=== PATIENT | female | born 1950 | race Caucasian/White ===

== ENCOUNTER 2019-01-29 20:06 | Observation (INO) | payer MEDICARE ==
--- NOTE | 2019-01-29 21:12 | CT ---
CT CERVICAL SPINE WITHOUT CONTRAST 01/29/19 HISTORY: Patient was found down in a field. Patient is being evaluated for possible stroke. COMPARISON: None. FINDINGS: No craniocervical dissociation. Lateral masses of C1 and C2 articular appropriately. There are degene rative changes in the facets. Intact odontoid process. Sclerotic lucencies likely due to chronic stalin nge. No prevertebral soft tissue swelling. Vary degrees of foraminal stenosis and central canal stenosis d ue to degenerative change. Evaluation is limited by technique. Upper mediastinum and lung apices are unremarkable. Cervical spine vertebral body height is maintained. There is no facture. IMPRESSION: 1. Chronic changes of the odontoid process. 2. No fracture. POS: [facility]
--- NOTE | 2019-01-29 22:02 | PDOC.FPRHP ---
- History of Present Illness Chief Complaint: ams History of Present Illness: 68yo F presented via EMS after she was found out in a horse pasture by her neighbors. Pt has no memory of what happened prior to being picked up by EMS. Based on her neighbors it was thought she may have been out feeding the horses as it is the time of day that she usually does. Pt was unable to provide much hx but was called. reported that over time pt has had slow decline in short term memory and ability to perform duties of home such as paying bills though she has never been this bad and that she has never had an acute event of amnesia before. Additionally he reports she has had prior trauma to the head one year ago after which pt had short term memory loss though she eventually recovered. ED Course: no medications administered, various labs and imaging as listed in EMR - Allergies/Adverse Reactions Allergies Allergy/AdvReac Type Severity Reaction Status Date / Time Iodinated Contrast- Oral and Allergy Severe Anaphylaxis Verified 01/30/19 00:48 IV Dye adhesive Allergy Mild Rash Verified 01/30/19 00:48 - Home Medications Medication Instructions Recorded Confirmed Type Acetaminophen [Tylenol Regular 650 mg PO Q4H PRN tab 01/30/19 Rx Strength] Aspirin [Ecotrin Low Strength] 81 mg PO DAILY tab 01/30/19 Rx Atenolol 1 tab PO BID 01/30/19 01/30/19 History Levothyroxine Sodium 1 tab PO DAILY 01/30/19 01/30/19 History Lisinopril/Hydrochlorothiazide 1 tab PO DAILY 01/30/19 01/30/19 History [Lisinopril-Hctz 20-12.5 mg Tab] Omeprazole 1 cap PO DAILY 01/30/19 01/30/19 History - History PMHx: Hx of head trauma, HTN, hypothyroid 2/2 thryroidectomy for thyroid cancer , GERD PSHx: thyroidectomy, hysterectomy FHx: negative Social: denies etoh/tobacco/drugs - Review of Systems General: denies: fever/chills, fatigue Eyes: denies: eye pain, vision changes ENT: denies: nasal congestion, rhinorrhea Respiratory: denies: congestion, shortness of breath Cardiovascular: denies: chest pain, palpitation Gastrointestinal: denies: nausea, vomiting Genitourinary: denies: incontinence, dysuria Skin: denies: rashes, lesions Musculoskeletal: denies: pain, tenderness Neurological: denies: syncope, seizure Psychological: denies: anxiety, depression - Vital signs BP: [156/93] HR: [66] RR: [17] Tmax: [98.2] Pox: [99]% on [ra] Wt: [82kg] - Physical Exam Constitutional: NAD, well developed HEENT: normocephalic and atraumatic, EOMI, conjunctiva clear, grossly normal vision, grossly normal hearing, MMM Neck: supple, trachea midline, other (scar) Chest: no-tender to palpation Heart: RRR, normal S1/S2 Lungs: CTAB, no respiratory distress Abdomen: soft, non-tender Musculoskeletal: normal structure, normal tone Neurological: no focal deficit, CN II-XII intact, normal sensation, DTRs 2+, other (facial droop at mouth 2/2 scar tissue on neck. On smiling droop dissapears) Skin: no rash/lesions, good turgor Heme/Lymphatic: no unusual bruising or bleeding, no purpura Psychiatric: normal mood and affect FMR H&P: A/P - Problem List (1) Altered mental state Current Visit: Yes Status: Acute Code(s): R41.82 - ALTERED MENTAL STATUS, UNSPECIFIED (2) Hypothyroid Current Visit: Yes Status: Acute Code(s): E03.9 - HYPOTHYROIDISM, UNSPECIFIED (3) HTN (hypertension) Current Visit: Yes Status: Acute Code(s): I10 - ESSENTIAL (PRIMARY) HYPERTENSION (4) GERD (gastroesophageal reflux disease) Current Visit: Yes Status: Acute Code(s): K21.9 - GASTRO-ESOPHAGEAL REFLUX DISEASE WITHOUT ESOPHAGITIS - Plan AMS A- likely 2/2 dementia vs. TIA/stroke. CT brain, CTA, and CT neck all negative so far. Neuro exam was not impressive other than mental status. SLUMS score of 16 (reference 25 for her lvl of education) points to dementia. Considering the seemingly acute nature of onset of increased disorientation and amnesia amnesia must also be considered. No signs of trauma on exam or through imaging at this time. P- MRI in AM - ASA - consider further conversations with to establish baseline - allow for permissive HTN at this time Hypothyroid A- 2/2 thyroidectomy, TSH in hospital 0.08 P- recommend f/u outpt for adjustment of levothyroxin dose HTN -hold home meds for permissive htn GERD -home meds DISPO: stroke, obs DIET: regular CODE: Pt only desires intubation. Discussed extensively with pt who verbalized excellent understanding of various options of resuscitation. FMR H&P: Upper Level - Pertinent history 68 yo WF PMH HTN, hypothyroid, and remote hx of thyroid cancer. Presents after being found down for unknown amount of time. Last seen normal at 1400. Family believe she was going to the pasture to feed her livestock. Patient was found down and covered in dirt with her sock and bra missing. Do not suspect foul play or assault. Patient able to recall remote medical history but was unable to tell time, day of week, date, or year. Also unable to recall events of the past 2-3 days and is forgetful during examination. I spoke to the who agreed she was last seen normal at 1400. Patient called neighbor at 1600 and was confused where she was. States she was confused about what she was doing. Could not remember if she had fallen down but was covered in dirt on the right side. States her eyes were dilated. States this has happened before when they were living in [place] and occurred when a horse pulled her to the ground and caused the patient to strike her head on the ground and lose consciousness. Episode only lasted 2-3 hours. Has been very forgetful since the move and it has worsened over the past 6 months. Has not got lost driving. Manages family's finances and has forgotten to pay bills more frequent over the past 6-8 months. Has history of bilateral total knee replacements. ER: Labs, CT-brain, CT neck, Narcan - Pertinent findings Vitals: WNL GEN: NAD, dirt present on skin. CV: RRR, no murmur Pulm: CTA-B Neuro: CN 2-12 intact, reflexes 2/4, normal strength and sensation. SLUMS score 16 with most points lost for recalling details from short term memory. CT-brain: no acute processes CT-cervical spine: degenerative changes. - Plan Date/Time: 01/29/192201 I, Watson Pappas MD, have evaluated this patient and agree with findings/plan as outlined by quality assurance intern resident. Pertinent changes/additions are listed here. 1. AMS: evaluation negative. Will plan for MRI in the morning to complete evaluation. Based on the SLUMS score and report from , the patient likely has early dementia. Pending MRI, will consider neurology consultation. 2. Fall: no signs of injury 3. Chronic conditions per Nuclear Waste Management Engineer Note 4. Diet: NPO until bedside swallow passed then HH diet. 5. CODE: INTUBATION ONLY Dispo: obs, stroke, <[address] Bruno. Addendum - Attending - Attending Attestation Date/Time: 01/30/192021 I personally evaluated the patient and discussed the management with Dr. Jacobson last evening. I agree with the History, Examination, Assessment and Plan documented above with any addition or exceptions noted below.
[2019-01-30] MEDS ORDERED: Ondansetron ODT 4 MG TAB SL PRN (00:21)
[2019-01-30] MEDS ORDERED: Ondansetron PF 4 MG/2 ML Vial IVP PRN (00:21)
[2019-01-30] MEDS ORDERED: Sodium Chloride 0.9% 1,000 ML IV SCH (00:21)
[2019-01-30] MEDS ORDERED: diphenhydrAMINE 25 MG CAP PO PRN (00:30)
[2019-01-30 00:41] VITALS: BMI 32.6
[2019-01-30] MEDS: Levothyroxine Sodium 25 MCG TAB PO SCH (06:34)
[2019-01-30] MEDS: Levothyroxine Sodium 112 MCG TAB PO SCH (06:35)
--- NOTE | 2019-01-30 06:41 | PDOC.FM ---
- Subjective Subjective: Patient reports feeling much better this AM. Denies any headache, vision changes , focal weakness, dysarthria, or numbness/tingling. Still has no memory of events leading up to admission. A&O x 2 on exam. - Objective MAR Reviewed: Yes Vital Signs & Weight: Vital Signs (12 hours) Temp Pulse Resp BP Pulse Ox 01/30/19 04:00 98.3 F 78 18 110/66 95 01/29/19 23:31 98.3 F 67 18 161/97 H 99 Weight Weight 78.381 kg I&O: 01/28/19 01/29/19 01/30/19 06:59 06:59 06:59 Intake Total 236 Balance 236 Phys Exam - Physical Examination Constitutional: NAD HEENT: moist MMs, oral pharynx no lesions Neck: supple, full ROM Respiratory: no wheezing, no rales, no rhonchi, clear to auscultation bilateral Cardiovascular: RRR, no significant murmur Gastrointestinal: positive bowel sounds Neurological: non-focal, normal sensation, 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 TIA/stroke. CT brain, CTA, and CT neck all negative so far. Neuro exam was not impressive other than mental status. SLUMS score of 16 (reference 25 for her lvl of education). Considering the seemingly acute nature of onset of increased disorientation and amnesia, simple amnesia must also be considered. No signs of trauma on exam or through imaging at this time. Will consider referral for further workup as an outpatient regarding dementia vs. amnesia including additional organic causes such as vitamin deficiencies or chronic infections such as HIV & syphilis. - MRI pending for today to r/o any acute event or other IC process that could explain her memory loss. - Will continue QD ASA & consider initiating moderate intensity statin therapy as well based on ASCVD 10-year score of 12.7% currently but increases to 23% should develop diabetes from her current pre-DM (A1c 6.1). - Will plan to discuss with further to establish memory baseline. - Will continue allow for permissive HTN at this time through 24hrs from onset of symptoms pending MRI. Pre-DM - Will educate on diet & exercise and ensure close f/u w/ PCP regarding this. Hypothyroid - 2/2 thyroidectomy, TSH low at 0.08 but T4 WNLs. - recommend f/u outpt for adjustment of levothyroxin dose HTN - Will hold home meds for permissive htn until time of onset of symptoms. GERD -home meds DISPO: stroke, obs DIET: HH IVFs: saline lock DVT PPx: Lovenox CODE: Pt only desires intubation. Discussed extensively with pt who verbalized excellent understanding of various options of resuscitation. Addendum - Attending - Attending Attestation Date/Time: 01/30/19 854 I personally evaluated the patient and discussed the management with Dr. aRzo. I agree with the History, Examination, Assessment and Plan documented above with any addition or exceptions noted below. Pt is still confused about what brought her to hospital and doesn't recall details of being out in a field. MRI is scheduled today. Will add echo as well.
[2019-01-30] MEDS ORDERED: Benzonatate 100 MG CAP PO PRN (07:55)
[2019-01-30 08:08] LABS: Hemoglobin A1c 6.1 % (4.0-6.0)
[2019-01-30 08:24] LABS: Cardiac Risk 5.1 (Less than 4.5)
[2019-01-30] MEDS: Aspirin 81 mg Enteric Coated Tablet PO SCH (08:46)
[2019-01-30] MEDS: Acetaminophen 325 MG TAB PO PRN ×3 (08:46→20:51)
[2019-01-30] MEDS: Enoxaparin Sodium 40 MG/0.4 ML SYRINGE SC SCH (08:47)
[2019-01-30] MEDS ORDERED: Lisinopril/Hydrochlorothiazide 20 mg/12.5 mg Tablet PO SCH ×2 (09:00→11:15)
[2019-01-30] MEDS ORDERED: Non-Formulary Item 1 EACH (Levothyroxine Sodium [Levothyroxine Sodium] 1 TAB) PO SCH (09:00)
[2019-01-30] MEDS ORDERED: Non-Formulary Item 1 EACH (Omeprazole [Omeprazole] 1 CAP) PO SCH (09:00)
[2019-01-30] MEDS ORDERED: Atenolol 25 MG TAB PO SCH (09:00)
--- NOTE | 2019-01-30 11:00 | MRI ---
MRI BRAIN WITHOUT CONTRAST: Date: 01/30/19 HISTORY: Altered mental status and amnesia, dementia. FINDINGS: Correlation is made with previous day's CT scan. No restricted diffusion is seen. No evidence of infarct, hemorrhage, midline shift, or abnormal extra -axial fluid collections are noted. There are changes of mild chronic small vessel ischemic disease i n the periventricular white matter. The visualized paranasal sinuses and mastoid air cells are well a erated. IMPRESSION: No evidence of acute intracranial process. POS: [facility]
[2019-01-30] MEDS: Atenolol 25 MG TAB PO SCH (20:42)
[2019-01-30] MEDS ORDERED: Atorvastatin Calcium 40 MG TAB PO SCH (21:00)
[2019-01-31] MEDS: Levothyroxine Sodium 112 MCG TAB PO SCH (06:18)
[2019-01-31] MEDS: Levothyroxine Sodium 25 MCG TAB PO SCH (06:18)
--- NOTE | 2019-01-31 06:27 | PDOC.FM ---
- Subjective Subjective: Patient states she feels well this AM. A&O x 3 this AM but saw date written on board. Did now the year though and remembered her 's birthday was [birth year]. Reports that her urine appears darker in color and has a slight odor. Denies any dysuria, frequency, hematuria or suprapubic tenderness. - Objective MAR Reviewed: Yes Vital Signs & Weight: Vital Signs (12 hours) Temp Pulse Resp BP Pulse Ox 01/31/19 04:00 97.9 F 71 18 114/76 95 01/31/19 00:00 97.8 F 72 19 142/79 H 97 01/30/19 20:00 98.0 F 81 19 137/86 95 Weight Weight 78.381 kg I&O: 01/29/19 01/30/19 01/31/19 06:59 06:59 06:59 Intake Total 236 50 Balance 236 50 Phys Exam - Physical Examination Constitutional: NAD HEENT: moist MMs Neck: supple, full ROM Respiratory: no wheezing, no rales, no rhonchi, clear to auscultation bilateral Cardiovascular: RRR, no significant murmur Gastrointestinal: soft, non-tender Musculoskeletal: no edema, pulses present Neurological: non-focal, normal sensation, moves all 4 limbs Psychiatric: normal affect, A&O x 3 Skin: no rash, normal turgor Dx/Plan (1) Altered mental state Code(s): R41.82 - ALTERED MENTAL STATUS, UNSPECIFIED Status: Acute (2) GERD (gastroesophageal reflux disease) Code(s): K21.9 - GASTRO-ESOPHAGEAL REFLUX DISEASE WITHOUT ESOPHAGITIS Status: Acute (3) HTN (hypertension) Code(s): I10 - ESSENTIAL (PRIMARY) HYPERTENSION Status: Acute (4) Hypothyroid Code(s): E03.9 - HYPOTHYROIDISM, UNSPECIFIED Status: Acute (5) HLD (hyperlipidemia) Code(s): E78.5 - HYPERLIPIDEMIA, UNSPECIFIED Status: Acute (6) Pre-diabetes Code(s): R73.03 - PREDIABETES Status: Acute (7) Dementia Code(s): F03.90 - UNSPECIFIED DEMENTIA WITHOUT BEHAVIORAL DISTURBANCE Status: Acute - Plan Plan: AMS - likely 2/2 dementia as TIA/stroke workup has been negative inlcuding a CT & MRI brain, CTA of head & neck, and CT neck. Neuro exam still not impressive other than mental status; however, patient only disoriented to time, knows place. Will likely need further workup as an outpatient regarding likely dementia including additional organic causes such as vitamin deficiencies or chronic infections such as HIV & syphilis. - Will continue QD ASA & would initiate a stain; however, patient reports she does not tolerate statins 2/2 increased muscle weakness & fatigue. Will make mention of this in her discharge paperwork. Pre-DM - A1c of 6.1. Will educate on diet & exercise and ensure close f/u w/ PCP regarding this. Hypothyroidism - 2/2 thyroidectomy, TSH low at 0.08 but T4 WNLs. - recommend f/u outpt for adjustment of levothyroxin dose HTN - Will continue home meds. GERD -home meds HLD - Patient reports not tolerating a statin but given risk factors should be on one. Will recommend considering another option for HLD therapy in her d/c paperwork. Depression: - Will resume home citalopram today & upon d/c. DISPO: Anticipate d/c home today after an ECHO. DIET: HH IVFs: saline lock DVT PPx: Lovenox CODE: Pt only desires intubation. Discussed extensively with pt who verbalized excellent understanding of various options of resuscitation. Addendum - Attending - Attending Attestation Date/Time: 01/31/19 1018 I personally evaluated the patient and discussed the management with Dr. Razo. I agree with the History, Examination, Assessment and Plan documented above with any addition or exceptions noted below. The patient is feeling better this morning and confusion is improving. The patient is waiting on an echo to be taken then will be discharging home.
[2019-01-31] MEDS: Aspirin 81 mg Enteric Coated Tablet PO SCH (08:29)
[2019-01-31] MEDS: Atenolol 25 MG TAB PO SCH (08:29)
[2019-01-31] MEDS: Enoxaparin Sodium 40 MG/0.4 ML SYRINGE SC SCH (08:29)
[2019-01-31] MEDS: Acetaminophen 325 MG TAB PO PRN (08:30)
[2019-01-31] MEDS ORDERED: Citalopram 20 MG TAB PO SCH (09:00)
[2019-01-31] MEDS ORDERED: Lisinopril/Hydrochlorothiazide 20 mg/12.5 mg Tablet PO SCH ×2 (09:00)
[2019-01-31 11:21] VITALS: BP 140/86; TEMP 97.6
--- NOTE | 2019-02-03 09:26 | DIS ---
DATE OF ADMISSION: 01/29/2019 DATE OF DISCHARGE: 01/31/2019 RESIDENT: Yuliana Razo MD ADMITTING ATTENDING: Geronimo Bruno MD DISCHARGE ATTENDING: Magaly Latham MD CONSULTS: None. PROCEDURES: 1. Brain CT on 01/29/2019, which showed no evidence of hemorrhage, acute infarction, mass effect, or midline shift. No acute intracranial abnormality demonstrated. 2. Head and neck CTA with brain perfusion on 01/29/2019, which showed no evidence of significant stenosis of the cervical carotid arteries based upon NASCET criteria. Unremarkable CT angiogram of the [place]. No significant stenosis or vascular occlusion. 3. Cervical spine CT on 01/29/2019, which noted chronic changes of the odontoid process with no acute fracture. 4. Brain MRI on 01/30/2019, which showed no evidence of acute intracranial process. 5. Echocardiogram on 01/31/2019, which showed left ventricular ejection fraction of 55% to 60% with E/A flow reversal noted suggestive of diastolic dysfunction. Mild mitral and tricuspid regurgitation present with mitral annular calcification as well. PRIMARY DIAGNOSES: 1. Altered mental status, secondary to chronic dementia. 2. Prediabetes mellitus. SECONDARY DIAGNOSES: 1. Hypothyroidism. 2. Hypertension. 3. Gastroesophageal reflux disease. 4. Hyperlipidemia. 5. Depression. DISCHARGE MEDICATIONS: 1. Omeprazole 20 mg p.o. daily. 2. Atenolol 25 mg p.o. b.i.d. 3. Synthroid 137 mcg p.o. daily. 4. Lisinopril/HCTZ 20/12.5 mg tablets, 1 tab p.o. daily. 5. Acetaminophen 650 mg p.o. every 4 hours p.r.n. 6. Aspirin 81 mg p.o. daily. 7. Citalopram 20 mg p.o. b.i.d. DISCONTINUED MEDICATIONS: None. HOSPITAL COURSE: The patient is a 68-year-old female with a past medical history significant for progressively worsening dementia following trauma to the head by a horse approximately 1 year ago, hypertension and hyperlipidemia, who presented to the emergency department via EMS after being found wandering in a horse pressure by her neighbors. On presentation, the patient had no memory of what happened prior to being picked up by EMS. However, discussion with her has been revealed that over time, the patient has had a slow decline in her short-term memory and ability to perform regular tasks such as paying bills at home. On presentation to the emergency department, the patient's vitals were noted to be within normal limits with the exception of a slightly elevated blood pressure of 164/86. Routine blood work was obtained including a CBC, CMP, troponin and lactic acid, all of which were negative. Urinalysis and UDS were also obtained and were within normal limits. Extensive imaging including a brain CT, head and neck CTA, and cervical spine CT were all obtained, all of which were also within normal limits. However, due to the acutely worsened amnesia that the patient presented with, she was admitted for close observation overnight for completing a workup for possible CVA versus TIA, which could explain her acute memory deficits. The following day, a brain MRI was obtained which was within normal limits and showed no acute intracranial abnormality suggestive of an ischemic event. Also on day #2 of hospitalization, hemoglobin A1c and fasting lipid panel were obtained, which were significant for prediabetes mellitus with an A1c of 6.1 and hypercholesterolemia with a total cholesterol level of 211, LDL of 134, and HDL 41. Of note, when the patient was asked about statin therapy, she reported an adverse reaction to statins in the past. Therefore, no statin therapy was initiated during her hospital stay, but the patient was encouraged to follow up with her primary care provider regarding hypercholesterolemia treatment. Regarding her prediabetes mellitus, the patient was started on a consistent carb diet during her hospital stay and was encouraged to follow up with her primary care provider and was educated on lifestyle changes in order to prevent progression to diabetes mellitus type 2. The patient was kept for one additional night in order to obtain an echocardiogram to complete her CVA workup. Her echo showed an EF of 55% to 60% with E/A flow reversal suggestive of diastolic dysfunction. Thus, by day #3 of hospitalization, the patient's mental status was noted to have significantly improved and all of her memory testing was negative and all imaging was negative for any acute ischemic event. She was therefore cleared for discharge home with close followup with her primary care provider, Dr. Poli Allison. DISPOSITION: Stable. DISCHARGE INSTRUCTIONS: 1. Location: Home. 2. Diet: Consistent carb, heart healthy, low-sodium diet. 3. Activity: Activity as tolerated. No restrictions. 4. Followup: The patient was instructed to follow up with her primary care provider, Dr. Poli Allison at [facility] within 1 week of discharge. Job ID: [id number]
== END 2019-01-31 13:52 | disposition home or self-care (01) ==
LOC: ERS 20:06 → 2SE 21:39
PROVIDERS: ADMIT Family Medicine; ATTEND Family Medicine
DX: R41.82 Altered mental status, unspecified (principal); I10 Essential (primary) hypertension; E89.0 Postprocedural hypothyroidism; K21.9 Gastro-esophageal reflux disease without esophagitis; Z79.82 Long term (current) use of aspirin; Z79.899 Other long term (current) drug therapy; Z91.041 Radiographic dye allergy status; Z91.048 Other nonmedicinal substance allergy status
CPT/HCPCS: 70551; 72125; 80061; 82962 ×2; 83036; 84439; 93306; 96372 ×2; 99285; G0378 ×2; 36415; 36416; J1650; Q0163

== ENCOUNTER 2022-03-18 00:51 | Inpatient (IN) | payer MEDICARE ==
[2022-03-18 02:07] VITALS: BMI 33.8
[2022-03-18] MEDS ORDERED: Ondansetron PF 4 MG/2 ML Vial IVP PRN (02:48)
[2022-03-18] MEDS ORDERED: hydrALAZINE 20 MG/ML VIAL SLOW IVP PRN (02:52)
[2022-03-18] MEDS: Sodium Chloride 0.9% 1,000 ML IV SCH ×3 (03:49→20:30)
[2022-03-18] MEDS ORDERED: Ketorolac Tromethamine 30 MG/ML VIAL IVP SCH (05:15)
[2022-03-18 06:10] LABS: #Eosinphils 0.2 thou/uL (0.0-0.7); #Lymphocytes 1.9 thou/uL (1.20-3.40); #Monocytes 0.7 thou/uL (0.11-0.59); #Neutrophils 4.5 thou/uL (1.40-6.50); %Basophils 0.5 % (0.0-1.0); %Eosinophils 3.1 % (0.0-10.0); %Lymphocytes 25.8 % (21.0-51.0); %Monocytes 9.7 % (0.0-10.0); %Neutrophils 60.9 % (42.0-75.0); Hemoglobin 11.9 g/dL (12.0-16.0); Mean Corpuscular HGB CONC 33.6 g/dL (32.0-36.0); Mean Corpuscular Hemoglobin 31.5 pg (27.0-31.0); Mean Corpuscular Volume 93.7 fL (78.0-98.0); Mean Platelet Volume 8.5 fL (7.4-10.4); Platelet Count 202 thou/uL (130-400); RBC Distribution Width 11.4 % (11.5-14.5); Red Blood Cell (RBC) Count 3.79 mill/uL (4.20-5.40); White Blood Cell (WBC) Count 7.4 thou/uL (4.8-10.8)
[2022-03-18 06:27] LABS: Anion Gap 10 mmol/L (10-20); BUN (Urea Nitrogen) 20 mg/dL (9.8-20.1); Calc. Creatinine Clearance 96 mL/min (70-130); Calcium 8.3 mg/dL (7.8-10.44); Carbon Dioxide 25 mmol/L (23-31); Chloride 107 mmol/L (98-107); Glucose 115 mg/dL (83-110); Potassium 3.3 mmol/L (3.5-5.1); Sodium 139 mmol/L (136-145)
[2022-03-18] MEDS ORDERED: Pantoprazole 40 MG VIAL IVP SCH (09:00)
[2022-03-18] MEDS ORDERED: Enoxaparin Sodium 40 MG/0.4 ML SYRINGE SC SCH (09:00)
[2022-03-18] MEDS: Potassium Chloride 20 MEQ in Premix Bag 1 BAG IVPB SCH ×2 (09:59→11:22)
[2022-03-18] MEDS ORDERED: Lidocaine 1% PF 5 ML VIAL ONE (14:02)
[2022-03-18] MEDS ORDERED: PROPOFOL 200 MG/20 ML VIAL ONE (14:05)
[2022-03-18] MEDS ORDERED: Ondansetron HCl/PF 4 MG/2 ML Vial IVP PRN (14:43)
[2022-03-18] MEDS ORDERED: Promethazine HCl 25 MG/ML VIAL IVPB PRN (14:43)
[2022-03-18] MEDS ORDERED: Promethazine HCl 25 MG/ML VIAL IM PRN (14:43)
[2022-03-18] MEDS: Pantoprazole 40 MG VIAL IVP SCH (20:23)
[2022-03-18] MEDS ORDERED: Acetaminophen 325 MG TAB PO PRN (20:47)
[2022-03-18] MEDS ORDERED: Acetaminophen 650 MG/20.3 ML UDCUP PO PRN (20:55)
[2022-03-19 06:16] LABS: #Eosinphils 0.3 thou/uL (0.0-0.7); #Lymphocytes 1.5 thou/uL (1.20-3.40); #Monocytes 0.5 thou/uL (0.11-0.59); #Neutrophils 3.1 thou/uL (1.40-6.50); %Basophils 0.3 % (0.0-1.0); %Lymphocytes 27.8 % (21.0-51.0); %Monocytes 9.5 % (0.0-10.0); %Neutrophils 57.4 % (42.0-75.0); Hemoglobin 11.8 g/dL (12.0-16.0); Mean Corpuscular HGB CONC 34.8 g/dL (32.0-36.0); Mean Corpuscular Hemoglobin 32.7 pg (27.0-31.0); Mean Corpuscular Volume 94.1 fL (78.0-98.0); Mean Platelet Volume 7.9 fL (7.4-10.4); Platelet Count 172 thou/uL (130-400); RBC Distribution Width 11.2 % (11.5-14.5); Red Blood Cell (RBC) Count 3.59 mill/uL (4.20-5.40); White Blood Cell (WBC) Count 5.5 thou/uL (4.8-10.8)
[2022-03-19 06:42] LABS: Anion Gap 12 mmol/L (10-20); BUN (Urea Nitrogen) 14 mg/dL (9.8-20.1); Calc. Creatinine Clearance 107 mL/min (70-130); Calcium 8.4 mg/dL (7.8-10.44); Carbon Dioxide 22 mmol/L (23-31); Chloride 111 mmol/L (98-107); Glucose 95 mg/dL (83-110); Potassium 3.8 mmol/L (3.5-5.1); Sodium 141 mmol/L (136-145)
[2022-03-19] MEDS: Sodium Chloride 0.9% 1,000 ML IV SCH ×2 (09:39→20:29)
[2022-03-19] MEDS: Enoxaparin Sodium 40 MG/0.4 ML SYRINGE SC SCH (09:43)
[2022-03-19] MEDS: Pantoprazole 40 MG VIAL IVP SCH ×2 (09:43→21:01)
[2022-03-19] MEDS: Atenolol 25 MG TAB PO SCH (21:01)
[2022-03-19] MEDS: Citalopram 20 MG TAB PO SCH (21:02)
[2022-03-20] MEDS ORDERED: Fluticasone Propionate Nasal Spray 16 gm Bottle NASAL PRN (04:16)
[2022-03-20] MEDS ORDERED: Levothyroxine Sodium 25 MCG TAB PO SCH (06:00)
[2022-03-20] MEDS ORDERED: Levothyroxine Sodium 112 MCG TAB PO SCH (06:00)
[2022-03-20 06:14] LABS: Anion Gap 13 mmol/L (10-20); BUN (Urea Nitrogen) 7 mg/dL (9.8-20.1); Calc. Creatinine Clearance 103 mL/min (70-130); Calcium 8.7 mg/dL (7.8-10.44); Carbon Dioxide 21 mmol/L (23-31); Chloride 108 mmol/L (98-107); Glucose 125 mg/dL (83-110); Potassium 3.4 mmol/L (3.5-5.1); Sodium 139 mmol/L (136-145)
[2022-03-20] MEDS ORDERED: Aspirin 81 mg Enteric Coated Tablet PO SCH (09:00)
[2022-03-20] MEDS ORDERED: Bupropion 150 MG XL TAB PO SCH (09:00)
[2022-03-20] MEDS ORDERED: Lisinopril/Hydrochlorothiazide 20 mg/12.5 mg Tablet PO SCH (09:00)
[2022-03-20] MEDS: Atenolol 25 MG TAB PO SCH (09:34)
[2022-03-20] MEDS: Citalopram 20 MG TAB PO SCH (09:35)
[2022-03-20] MEDS: Enoxaparin Sodium 40 MG/0.4 ML SYRINGE SC SCH (09:35)
[2022-03-20] MEDS: Pantoprazole 40 MG VIAL IVP SCH (09:35)
[2022-03-20] MEDS ORDERED: Potassium Chloride 20 MEQ TAB PO SCH (10:00)
[2022-03-20] MEDS: Sodium Chloride 0.9% 1,000 ML IV SCH (11:33)
[2022-03-20 15:31] VITALS: BP 140/79; TEMP 98.1
== END 2022-03-20 16:30 | disposition home or self-care (01) | DRG 382 ==
LOC: SURG B 01:21 → OBSVTOIN 03-20 13:53
PROVIDERS: ADMIT Internal Medicine; ATTEND Hospitalist
PROC: 0DB68ZX Excision of Stomach, Via Natural or Artificial Opening Endoscopic, Diagnostic (ICD-10-PCS; principal; 2022-03-18)
DX: K22.10 Ulcer of esophagus without bleeding (principal); R13.10 Dysphagia, unspecified; F03.90 Unspecified dementia, unspecified severity, without behavioral disturbance, psychotic disturbance, mood disturbance, and anxiety; E78.5 Hyperlipidemia, unspecified; I10 Essential (primary) hypertension; K31.7 Polyp of stomach and duodenum; E89.0 Postprocedural hypothyroidism; K21.00 Gastro-esophageal reflux disease with esophagitis, without bleeding; Z85.850 Personal history of malignant neoplasm of thyroid; Z79.82 Long term (current) use of aspirin; Z79.890 Hormone replacement therapy; Z79.899 Other long term (current) drug therapy; Z91.041 Radiographic dye allergy status; Z91.048 Other nonmedicinal substance allergy status; Z98.890 Other specified postprocedural states; Z90.710 Acquired absence of both cervix and uterus; Z90.49 Acquired absence of other specified parts of digestive tract; Z82.49 Family history of ischemic heart disease and other diseases of the circulatory system; Z82.3 Family history of stroke
CPT/HCPCS: 36415; 80048; 85025; 88305; 88312; 88342; 96372; 96374; 96376; C9113; G0378; J0360; J1650; J1885; J2704; J3480; J7050

== ENCOUNTER 2023-10-20 15:46 | Emergency (ER) | payer OTHER, MEDICARE ==
[2023-10-20 16:46] LABS: #Eosinphils 0.1 thou/uL (0.0-0.7); #Monocytes 0.7 thou/uL (0.11-0.59); %Basophils 0.2 % (0.0-1.0); %Eosinophils 1.7 % (0.0-10.0); %Lymphocytes 12.3 % (21.0-51.0); %Monocytes 9.9 % (0.0-10.0); %Neutrophils 75.6 % (42.0-75.0); Hematocrit 33.4 % (36.0-47.0); Hemoglobin 11.5 g/dL (12.0-16.0); Mean Corpuscular HGB CONC 34.4 g/dL (32.0-36.0); Mean Corpuscular Hemoglobin 30.3 pg (27.0-31.0); Mean Corpuscular Volume 87.9 fl (78.0-98.0); Mean Platelet Volume 10.1 fL (7.4-10.4); Platelet Count 207 10x3/uL (130-400); RBC Distribution Width 11.4 % (11.5-14.5); White Blood Cell (WBC) Count 6.7 10x3/uL (4.8-10.8)
[2023-10-20 17:07] LABS: Anion Gap 13 mmol/L (10-20); BUN (Urea Nitrogen) 18 mg/dL (9.8-20.1); Calc. Creatinine Clearance 0 mL/min (70-130); Calcium 8.2 mg/dL (7.8-10.44); Carbon Dioxide 24 mmol/L (23-31); Chloride 93 mmol/L (98-107); Estimated GFR 94; Glucose 125 mg/dL (83-110); Potassium 4.1 mmol/L (3.5-5.1); Sodium 126 mmol/L (136-145)
[2023-10-20 17:19] LABS: Troponin I Less than 0.010 ng/mL (< 0.028)
[2023-10-20] MEDS ORDERED: Morphine 4 MG/ML VIAL ONE (17:41)
== END 2023-10-20 19:12 | disposition short-term general hospital (02) ==
LOC: ERS 15:46
DX: S12.02XA Unstable burst fracture of first cervical vertebra, initial encounter for closed fracture (principal); S12.110A Anterior displaced Type II dens fracture, initial encounter for closed fracture; E87.1 Hypo-osmolality and hyponatremia; E11.9 Type 2 diabetes mellitus without complications; E07.9 Disorder of thyroid, unspecified; I10 Essential (primary) hypertension; Z79.899 Other long term (current) drug therapy; W01.0XXA Fall on same level from slipping, tripping and stumbling without subsequent striking against object, initial encounter
CPT/HCPCS: 36415; 70450; 72125; 72128; 80048; 84484; 85025; 93005; 96374; J2270

== ENCOUNTER 2024-12-16 00:42 | Inpatient (IN) | payer MEDICARE ==
[2024-12-16 03:36] VITALS: BMI 27.4
[2024-12-16] MEDS ORDERED: Calcium Carbonate 500 MG ChewTAB PO PRN (03:41)
[2024-12-16] MEDS ORDERED: Ondansetron ODT 4 MG TAB PO PRN (03:41)
[2024-12-16] MEDS ORDERED: Acetaminophen 650 MG Suppository PR PRN (03:41)
[2024-12-16] MEDS ORDERED: Ondansetron PF 4 MG/2 ML Vial IVP PRN (03:41)
[2024-12-16] MEDS: Acetaminophen 325 MG TAB PO PRN (04:39)
[2024-12-16 05:36] LABS: #Basophils 0.03 10x3/uL (0.0-0.2); %Basophils 0.6 % (0.0-1.0); %Eosinophils 3.6 % (0.0-10.0); %Lymphocytes 33.3 % (21.0-51.0); %Monocytes 10.8 % (0.0-10.0); %Neutrophils 51.5 % (42.0-75.0); Hematocrit 31.3 % (36.0-47.0); Hemoglobin 10.5 g/dL (12.0-16.0); Mean Corpuscular HGB CONC 33.5 g/dL (32.0-36.0); Mean Corpuscular Hemoglobin 29.6 pg (27.0-31.0); Mean Corpuscular Volume 88.2 fL (78.0-98.0); Platelet Count 203 10x3/uL (130-400); RBC Distribution Width 12.6 % (11.5-14.5); Red Blood Cell (RBC) Count 3.55 mill/uL (4.20-5.40)
[2024-12-16 05:52] LABS: Anion Gap 13 mmol/L (10-20); BUN (Urea Nitrogen) 16 mg/dL (9.8-20.1); Calc. Creatinine Clearance 90 mL/min (70-130); Calcium 8.2 mg/dL (7.8-10.44); Carbon Dioxide 22 mmol/L (23-31); Chloride 107 mmol/L (98-107); Estimated GFR 94; Glucose 113 mg/dL (83-110); Potassium 3.8 mmol/L (3.5-5.1); Sodium 138 mmol/L (136-145)
[2024-12-16] MEDS: Metoprolol Succinate XL 50 MG ER.TAB PO SCH (09:09)
[2024-12-16] MEDS: Famotidine 20 MG TAB PO SCH (09:10)
[2024-12-16] MEDS: Levothyroxine Sodium 25 MCG TAB PO SCH (09:11)
[2024-12-16] MEDS: Citalopram 20 MG TAB PO SCH (09:11)
[2024-12-16] MEDS: Levothyroxine Sodium 112 MCG TAB PO SCH (09:11)
[2024-12-16] MEDS: Oxybutynin ER 5 MG TAB PO SCH (09:12)
[2024-12-16] MEDS: Lisinopril 20 MG TAB PO SCH (09:13)
[2024-12-16] MEDS: Hydrochlorothiazide 25 MG TAB PO SCH (09:14)
[2024-12-16] MEDS: Famotidine/PF 20 mg/2ml Vial SLOW IVP SCH (09:14)
[2024-12-16] MEDS ORDERED: Magnevist 469MG/ML 20 ML VIAL ONE (10:39)
[2024-12-16] MEDS: Rosuvastatin 10 MG TAB PO SCH (19:39)
[2024-12-16] MEDS: cefTRIAXone\\ROCEPHIN 1 GM in Sodium Chloride 0.9% 100 ML IVPB SCH (21:48)
[2024-12-17 04:14] LABS: #Basophils 0.03 10x3/uL (0.0-0.2); %Basophils 0.7 % (0.0-1.0); %Eosinophils 4.5 % (0.0-10.0); %Lymphocytes 42.2 % (21.0-51.0); %Monocytes 11.2 % (0.0-10.0); %Neutrophils 41.2 % (42.0-75.0); Hematocrit 30.6 % (36.0-47.0); Mean Corpuscular HGB CONC 32.7 g/dL (32.0-36.0); Mean Corpuscular Hemoglobin 29.2 pg (27.0-31.0); Mean Corpuscular Volume 89.2 fL (78.0-98.0); Mean Platelet Volume 10.1 fL (7.4-10.4); Platelet Count 190 10x3/uL (130-400); Red Blood Cell (RBC) Count 3.43 mill/uL (4.20-5.40)
[2024-12-17 04:37] LABS: Anion Gap 11 mmol/L (10-20); BUN (Urea Nitrogen) 19 mg/dL (9.8-20.1); Calc. Creatinine Clearance 72 mL/min (70-130); Calcium 8.4 mg/dL (7.8-10.44); Carbon Dioxide 24 mmol/L (23-31); Chloride 109 mmol/L (98-107); Estimated GFR 86; Glucose 118 mg/dL (83-110); Potassium 3.7 mmol/L (3.5-5.1); Sodium 140 mmol/L (136-145)
[2024-12-17] MEDS: Levothyroxine Sodium 112 MCG TAB PO SCH (05:25)
[2024-12-17] MEDS: Levothyroxine Sodium 25 MCG TAB PO SCH (05:25)
[2024-12-17 22:00] VITALS: TEMP 98.3
[2024-12-18 12:33] VITALS: BP 146/80
== END 2024-12-18 16:19 | disposition home health service (06) | DRG 57 ==
LOC: T4-B 03:34 → OBSVTOIN 12-17 12:56
PROVIDERS: ADMIT Student in an Organized Health Care Education/Training Program; ATTEND Internal Medicine
DX: G91.2 (Idiopathic) normal pressure hydrocephalus (principal); N39.0 Urinary tract infection, site not specified; S80.00XA Contusion of unspecified knee, initial encounter; S00.83XA Contusion of other part of head, initial encounter; S70.00XA Contusion of unspecified hip, initial encounter; E11.9 Type 2 diabetes mellitus without complications; E03.9 Hypothyroidism, unspecified; I10 Essential (primary) hypertension; E78.5 Hyperlipidemia, unspecified; K21.9 Gastro-esophageal reflux disease without esophagitis; Z91.041 Radiographic dye allergy status; Z91.048 Other nonmedicinal substance allergy status; Z90.49 Acquired absence of other specified parts of digestive tract; Z90.89 Acquired absence of other organs; Z79.899 Other long term (current) drug therapy; F03.90 Unspecified dementia, unspecified severity, without behavioral disturbance, psychotic disturbance, mood disturbance, and anxiety
CPT/HCPCS: 36415; 36416; 70553; 76376; 80048; 85025; 93306; 96376; G0378; J0696